=== PATIENT | female | born 1960 | race Caucasian/White ===

== ENCOUNTER → 2024-06-30 06:34 | Day surgery (SDC) | payer MEDICARE, SELFPAY | LOC: GI 06:34 | PROVIDERS: ATTENDING PHYSICIAN Internal Medicine Gastroenterology | DX: Z12.11 Encounter for screening for malignant neoplasm of colon (principal); K64.8 Other hemorrhoids; Z86.0109 Personal history of other colon polyps | CPT/HCPCS: G0105 ==